=== PATIENT | male | born 1990 | race Caucasian/White ===

== ENCOUNTER 2020-04-26 16:43 | Emergency (ER) | payer MEDICAID, OTHER ==
[~2020-04-26] VITALS: Ht 190.5 cm; Wt 102.1 kg
--- NOTE | 2020-04-26 16:59 | NUR ---
ERMD at bedside for MSE.
[2020-04-26] MEDS ORDERED: IBUPROFEN 800 MG TABLET ONE (17:15)
[2020-04-26] MEDS ORDERED: IBUPROFEN 800 MG TABLET PO ONE (17:15)
[2020-04-26] MEDS ORDERED: KETOROLAC TROMETHAMINE 60 MG INJ IM ONE (17:15)
--- NOTE | 2020-04-26 18:12 | NUR ---
Patient discharged to home in stable condition. Written and verbal after care instructions given. Patient verbalizes understanding of instructions. Stressed follow up or return to ER for worsening s/s.
[2020-04-26 18:14] VITALS: BP 139/77
== END 2020-04-26 18:15 | disposition home or self-care (01) ==
LOC: ER 16:45
DX: S13.9XXA Sprain of joints and ligaments of unspecified parts of neck, initial encounter (principal); S43.402A Unspecified sprain of left shoulder joint, initial encounter; M94.0 Chondrocostal junction syndrome [Tietze]; V43.52XA Car driver injured in collision with other type car in traffic accident, initial encounter; Y92.488 Other paved roadways as the place of occurrence of the external cause; J45.909 Unspecified asthma, uncomplicated
CPT/HCPCS: 71045; 73030; A4663